=== PATIENT | female | born 1985 | race Caucasian/White ===

== ENCOUNTER 2016-12-12 18:58 | Emergency (ER) | payer OTHER ==
[~2016-12-12] VITALS: Ht 160 cm; Wt 95.2 kg
[2016-12-12 20:11] VITALS: BP 155/88
== END 2016-12-12 20:11 | disposition home or self-care (01) ==
LOC: ED 18:58
DX: O99.612 Diseases of the digestive system complicating pregnancy, second trimester (principal); K52.9 Noninfective gastroenteritis and colitis, unspecified; Z79.899 Other long term (current) drug therapy; Z3A.27 27 weeks gestation of pregnancy

== ENCOUNTER 2017-03-27 18:18 | Emergency (ER) | payer OTHER ==
[2017-03-27 20:36] VITALS: BP 143/88
== END 2017-03-27 20:36 | disposition home or self-care (01) ==
LOC: ED 18:18
DX: K64.9 Unspecified hemorrhoids (principal)

== ENCOUNTER 2017-05-23 00:08 | Emergency (ER) | payer OTHER ==
[2017-05-23 01:15] VITALS: BP 129/71
== END 2017-05-23 01:16 | disposition home or self-care (01) ==
LOC: ED 00:08
DX: M54.5 Low back pain (principal)
CPT/HCPCS: J1885

== ENCOUNTER 2017-05-23 15:29 | Emergency (ER) | payer OTHER ==
[2017-05-23 17:28] LABS: BASOPHIL % 0.3 % (0-2); PLATELET COUNT 289 x10^3mcL (130-400); RED CELL DISTRIBUTION WIDTH 13.6 % (11.5-14.5)
[2017-05-23 17:34] LABS: CALCIUM 8.8 mg/dL (8.5-10.1); CARBON DIOXIDE 23.9 mmol/L (21-32); CHLORIDE SERUM 106 mmol/L (98-107); CREATININE SERUM 0.7 mg/dL (0.6-1.0); GFR1 > 60 mL/min; GLUCOSE SERUM 82 mg/dL (74-106); POTASSIUM SERUM 3.7 mmol/L (3.5-5.1); SODIUM SERUM 140 mmol/L (136-145)
[2017-05-23 17:39] LABS: ALKALINE PHOSPHATASE 117 U/L (46-116); ALT/SGPT 37 U/L (14-59); AST/SGOT 23 U/L (15-37); BILIRUBIN TOTAL 0.3 mg/dL (0.20-1.00); LIPASE 81 IU/L (73-393); TOTAL PROTEIN, SERUM 7.6 g/dL (6.4-8.2)
[2017-05-23 17:40] LABS: ALBUMIN 3.3 g/dL (3.4-5.0)
[2017-05-23 18:03] VITALS: BP 114/75
== END 2017-05-23 18:10 | disposition home or self-care (01) ==
LOC: ED 15:29
PROVIDERS: Emergency Medicine
DX: N20.0 Calculus of kidney (principal)
CPT/HCPCS: 36415

== ENCOUNTER 2017-09-02 03:25 | Emergency (ER) | payer OTHER ==
[~2017-09-02] VITALS: Ht 160 cm; Wt 88.0 kg
[2017-09-02 03:45] VITALS: Ht 160 cm; Wt 88.0 kg
[2017-09-02 07:12] VITALS: BP 113/69
== END 2017-09-02 07:13 | disposition home or self-care (01) ==
LOC: ED 03:25
DX: K21.9 Gastro-esophageal reflux disease without esophagitis (principal)
CPT/HCPCS: J2270; Q0162

== ENCOUNTER 2017-10-09 09:42 | Inpatient (IN) | payer OTHER ==
[~2017-10-09] VITALS: Ht 160 cm; Wt 92.1 kg
[2017-10-09 10:55] LABS: BASOPHIL % 0.7 % (0-2); PLATELET COUNT 361 x10^3mcL (130-400); RED CELL DISTRIBUTION WIDTH 13.1 % (11.5-14.5)
[2017-10-09 11:03] LABS: CALCIUM 8.9 mg/dL (8.5-10.1); CARBON DIOXIDE 25.7 mmol/L (21-32); CHLORIDE SERUM 105 mmol/L (98-107); CREATININE SERUM 0.8 mg/dL (0.6-1.0); GFR1 > 60 mL/min; GLUCOSE SERUM 99 mg/dL (74-106); POTASSIUM SERUM 3.4 mmol/L (3.5-5.1); SODIUM SERUM 140 mmol/L (136-145)
[2017-10-09 11:19] LABS: ALBUMIN 3.6 g/dL (3.4-5.0); ALKALINE PHOSPHATASE 175 U/L (46-116); ALT/SGPT 140 U/L (14-59); AST/SGOT 127 U/L (15-37); BILIRUBIN TOTAL 0.67 mg/dL (0.20-1.00); LIPASE 173 IU/L (73-393); TOTAL PROTEIN, SERUM 8.1 g/dL (6.4-8.2)
[2017-10-09 13:22] LABS: UA SPECIFIC GRAVITY 1.025 (1.005-1.035); microscopic required? YES; urine erythrocyte NEGATIVE (NEGATIVE)
[2017-10-09 13:32] LABS: CHOLESTEROL/HDL RATIO 5.6; MAGNESIUM 2.2 mg/dL (1.8-2.4); PHOSPHOROUS 3.2 mg/dL (2.5-4.9)
[2017-10-09 13:37] LABS: AMPHETAMINE QUAL UR NONE DETECTED (NEG <=1000)
[2017-10-09 13:40] LABS: FREE THYROXINE INDEX 2.9 ug/dL (1.4-4.5); T4(THYROXINE) 9.4 ug/dL (4.7-13.3)
[2017-10-09 13:44] LABS: T3 TOTAL 1.46 ng/mL
[2017-10-09 13:45] VITALS: BP 127/81
[2017-10-09 17:11] VITALS: BP 109/55
[2017-10-09 20:45] VITALS: BP 101/54
[2017-10-10] VITALS (7 sets, daily range): BP systolic 97–138; BP diastolic 63–79
[2017-10-10 14:50] LABS: BASOPHIL % 1.6 % (0-2); PLATELET COUNT 322 x10^3mcL (130-400)
[2017-10-10 15:00] LABS: CALCIUM 8.5 mg/dL (8.5-10.1); CARBON DIOXIDE 23.8 mmol/L (21-32); CHLORIDE SERUM 105 mmol/L (98-107); CREATININE SERUM 0.9 mg/dL (0.6-1.0); GFR1 > 60 mL/min; GLUCOSE SERUM 133 mg/dL (74-106); POTASSIUM SERUM 4.1 mmol/L (3.5-5.1); SODIUM SERUM 139 mmol/L (136-145)
[2017-10-11 06:12] VITALS: BP 104/63
[2017-10-11 07:01] LABS: CALCIUM 8.3 mg/dL (8.5-10.1); CARBON DIOXIDE 22.9 mmol/L (21-32); CHLORIDE SERUM 107 mmol/L (98-107); CREATININE SERUM 0.7 mg/dL (0.6-1.0); GFR1 > 60 mL/min; GLUCOSE SERUM 96 mg/dL (74-106); MAGNESIUM 2.2 mg/dL (1.8-2.4); PHOSPHOROUS 3.7 mg/dL (2.5-4.9); POTASSIUM SERUM 3.9 mmol/L (3.5-5.1); SODIUM SERUM 141 mmol/L (136-145)
[2017-10-11 07:16] LABS: BASOPHIL % 1.3 % (0-2); PLATELET COUNT 300 x10^3mcL (130-400); RED CELL DISTRIBUTION WIDTH 13.2 % (11.5-14.5)
[2017-10-11 09:35] LABS: BILIRUBIN DIRECT 0.64 mg/dL (0.0-0.2); BILIRUBIN TOTAL 1.1 mg/dL (0.20-1.00); TOTAL PROTEIN, SERUM 7.9 g/dL (6.4-8.2)
[2017-10-11 09:36] LABS: ALBUMIN 3.2 g/dL (3.4-5.0)
[2017-10-11 09:45] VITALS: BP 114/66
[2017-10-11 14:02] VITALS: BP 125/78
[2017-10-11 18:16] VITALS: BP 129/81
[2017-10-11 21:01] VITALS: BP 105/59
[2017-10-12 05:54] VITALS: BP 114/77
[2017-10-12 07:26] LABS: BASOPHIL % 0.3 % (0-2); PLATELET COUNT 323 x10^3mcL (130-400); RED CELL DISTRIBUTION WIDTH 13.1 % (11.5-14.5)
[2017-10-12 07:36] LABS: CALCIUM 8.6 mg/dL (8.5-10.1); CARBON DIOXIDE 23.2 mmol/L (21-32); CHLORIDE SERUM 104 mmol/L (98-107); CREATININE SERUM 0.7 mg/dL (0.6-1.0); GFR1 > 60 mL/min; GLUCOSE SERUM 86 mg/dL (74-106); MAGNESIUM 1.9 mg/dL (1.8-2.4); PHOSPHOROUS 2.9 mg/dL (2.5-4.9); POTASSIUM SERUM 3.5 mmol/L (3.5-5.1); SODIUM SERUM 140 mmol/L (136-145)
[2017-10-12 10:43] VITALS: BP 110/67
[2017-10-12 13:53] VITALS: BP 111/75
[2017-10-12 18:25] VITALS: BP 124/74
[2017-10-12 20:08] VITALS: Ht 160 cm; Wt 92.1 kg
[2017-10-12 20:53] VITALS: BP 104/68
[2017-10-13 05:08] VITALS: BP 98/59
[2017-10-13 07:11] LABS: BASOPHIL % 0.5 % (0-2); PLATELET COUNT 340 x10^3mcL (130-400); RED CELL DISTRIBUTION WIDTH 13.7 % (11.5-14.5)
[2017-10-13 07:35] LABS: CALCIUM 8.7 mg/dL (8.5-10.1); CARBON DIOXIDE 23.4 mmol/L (21-32); CHLORIDE SERUM 101 mmol/L (98-107); CREATININE SERUM 0.8 mg/dL (0.6-1.0); GFR1 > 60 mL/min; GLUCOSE SERUM 86 mg/dL (74-106); MAGNESIUM 2.1 mg/dL (1.8-2.4); PHOSPHOROUS 3.7 mg/dL (2.5-4.9); POTASSIUM SERUM 3.5 mmol/L (3.5-5.1); SODIUM SERUM 138 mmol/L (136-145)
[2017-10-13 07:56] VITALS: BP 114/77
[2017-10-13 10:14] VITALS: BP 114/77
== END 2017-10-13 12:40 | disposition home or self-care (01) | DRG 417 ==
LOC: ED 09:42 → DU 12:20 → MU 12:20 → DU 12:47 → MU 10-12 17:08
PROVIDERS: Emergency Medicine; Family Medicine; Family Medicine Sports Medicine; Internal Medicine; Surgery
PROC: 0FT44ZZ Resection of Gallbladder, Percutaneous Endoscopic Approach (ICD-10-PCS; principal; 2017-10-10 07:30)
PROC: BF131ZZ Fluoroscopy of Gallbladder and Bile Ducts using Low Osmolar Contrast (ICD-10-PCS; 2017-10-12)
PROC: 0F798ZZ Dilation of Common Bile Duct, Via Natural or Artificial Opening Endoscopic (ICD-10-PCS; 2017-10-12 07:30)
DX: K80.70 Calculus of gallbladder and bile duct without cholecystitis without obstruction (principal); N17.0 Acute kidney failure with tubular necrosis; K21.9 Gastro-esophageal reflux disease without esophagitis; E87.6 Hypokalemia; D72.829 Elevated white blood cell count, unspecified; Z53.29 Procedure and treatment not carried out because of patient's decision for other reasons; E78.5 Hyperlipidemia, unspecified; E66.3 Overweight; Z87.442 Personal history of urinary calculi; Z68.36 Body mass index [BMI] 36.0-36.9, adult; N20.0 Calculus of kidney
CPT/HCPCS: 43262; 83880; 84439; 94150; C1769; J0690; J1170; J1610; J1885; J2175; J2250; J2270; J2405; J2765; J3010; J3490; J7030; Q0092; Q0163; Q9967